=== PATIENT | female | born 1965 | race Caucasian/White ===

== ENCOUNTER 2024-03-29 20:20 | Emergency (ER) | payer OTHER, SELFPAY ==
[2024-03-29 20:27] VITALS: BP 160/90
[2024-03-29 22:44] LABS: % Basophils 0.6 % (0-2); % Eosinophils 1.5 % (0-6); % Immature Granulocytes 0.2 % (0-0.5); % Lymphocytes 38.3 % (20.5-51.1); % Monocytes 7.4 % (1.7-9.3); Absolute Basophils 0.1 10^3/uL (0-0.2); Absolute Eosinophils 0.1 10^3/uL (0-0.7); Absolute Lymphocytes 3.3 10^3/uL (1.2-3.4); Absolute Monocytes 0.6 10^3/uL (0.1-0.6); Absolute Neutrophils 4.5 10^3/uL (1.4-6.5); Hematocrit 36.8 % (37.0-47.0); Hemoglobin 11.7 g/dL (12.0-16.0); Mean Corp Hgb Conc. 31.8 g/dL (33.0-37.0); Mean Corpuscular Hgb 26.7 pg (27.0-31.0); Mean Corpuscular Volume 83.8 fL (81.0-99.0); Mean Platelet Volume 10.5 fL (7.4-10.4); Nucleated Red Blood Cells % 0 %; Platelet Count 247 10^3/uL (130-400); Red Blood Cell Count 4.39 10^6/uL (4.20-5.40); Red Cell Dist. Width 14.7 % (11.5-14.5); White Blood Cell Count 8.6 10^3/uL (4.8-10.8)
[2024-03-29 22:59] LABS: ALT (SGPT) 19 U/L (0-35); AST (SGOT) 22 U/L (14-36); Albumin 4.2 g/dl (3.5-5.0); Alkaline Phosphatase 52 U/L (38-126); Blood Urea Nitrogen 15 mg/dl (7-17); Calcium 9.5 mg/dl (8.4-10.2); Carbon Dioxide 28 mmol/L (22-30); Chloride 107 mmol/L (98-107); Glucose 107 mg/dl (70-99); Potassium 4.2 mmol/L (3.5-5.1); Sodium 145 mmol/L (135-145); Total Bilirubin 0.1 mg/dl (0.2-1.3); eGFR > 60.00
[2024-03-29] MEDS: OMNIPAQUE 50 ML PO (23:45)
[2024-03-29] MEDS: NSS 1000 IV (23:53)
[2024-03-29 23:54] VITALS: BMI 33.8
--- NOTE | 2024-03-29 23:55 | ED.GENMED ---
History of Present Illness
General
Chief Complaint: Abdominal Symptoms
Source: patient
Exam Limitations: none
Time Seen by Provider: 03/29/24 22:43
History of Present Illness
History of Present Illness:
This is a 58 year old female that comes in with c/o abd pain. States that this started in the summer that she just didn't feel good. States that she wasn't sure if it was her heart of her stomach. States that she went to [facility] and the did a
CT scan. States that she was told that there was LLQ inflammation but she did not take antibiotics at that time. States that she she did have an US and she did take antibiotics later for this pain. States that she has trouble going to the bathroom
and that they are unable to do a colonoscopy as they can't get the tube passed. States that she has taken Miralax and Fiber pills and she is going to the bathroom but very little. States that she is distended and and bloated and she feels like
something is pulling. States that she has slight headache and is nauseated. Denies any fever, chills, chest pain, SOB, vomiting, diarrhea, dizziness, urinary burning.
Past History
Past History
ED Past Medical History: GERD, Hypothyroidism and Other (Bowel obstruction, Diverticulitis, Endometriosis, Adhesions)
ED Past Surgical History: Bowel resection, Cholecystectomy and Gynecological (Hysterectomy, Lap x 7)
Social History
Tobacco: Non-smoker
Alcohol: Occasional
Personal:
Living: with family
Review of Systems
Review of Systems
All Other Systems: ROS reviewed and negative except as documented in HPI and ROS
Constitutional: Reports no symptoms; Denies fever or chills
EENT: Reports no symptoms
Respiratory: Reports no symptoms; Denies cough or trouble breathing
Cardiac: Reports no symptoms; Denies chest pain
ABD/GI: Reports abdominal pain, nausea and other (difficulty having a BM); Denies vomiting or diarrhea
: Reports no symptoms; Denies dysuria, frequency or urgency
Musculoskeletal: Reports no symptoms
Skin: Reports no symptoms
Neurological: Reports headache; Denies dizzy
Psychiatric: Reports no symptoms
Phy Exam
General Physical Exam
General Presentation: well appearing and no apparent distress
General age: appears stated age
General Skin: warm and dry
General Habitus: normal
General Mental: alert
General Hydration: appears well hydrated
ENT Exam
ENT Exam: TM's normal, pharynx normal and neck supple
Eye Exam
Eye Exam: EOMI
Cardiovascular Exam
Cardiovascular Exam: regular rate/rhythm, no edema, no murmur and normal peripheral pulses
Pulmonary Exam
Pulmonary Exam: lungs clear, no respiratory distress, no rales, chest non tender, no crackles, no rhonchi, no wheezing and no cough
Gastrointestinal Exam
Gastrointestinal Exam: normal bowel sounds, non tender, soft, no organomegaly, no pulsatile mass and non distended
Musculoskeletal Exam
Musculoskeletal Exam: full ROM and no edema
Skin Exam
Skin Exam: normal color, warm/dry, no rash and no petechia
Psychiatric Exam
Psychiatric Exam: normal mood/affect
Course
Orders/Labs/Results
Orders:
Orders
03/29/24 22:35
CMP [Comprehensive Metabolic Panel] Urgent
Complete Blood Count/With Diff Urgent
03/29/24 22:58
0.9% Sodium Chloride 1000 ml [Nss] 1,000 ml IV BOLUS
Iohexol [Omnipaque] See Protocol PO NOW STA
03/30/24 01:00
CT Abd/pel W Iv And Oral Contr Urgent
Reason For Exam: Left lower abd pain , bloating
Abnormal Lab Results
03/29/24
22:35
Hgb 11.7 L g/dL
(12.0-16.0)
Hct 36.8 L %
(37.0-47.0)
MCH 26.7 L pg
(27.0-31.0)
MCHC 31.8 L g/dL
(33.0-37.0)
RDW 14.7 H %
(11.5-14.5)
MPV 10.5 H fL
(7.4-10.4)
Glucose 107 H mg/dl
(70-99)
Total Bilirubin 0.1 L mg/dl
(0.2-1.3)
03/29/24 22:35
03/29/24 22:35
H/H slightly low. Glucose nonfasting. Total helen slightly low.
Vital Signs
Initial and Last Documented VS:
Initial Vital Signs
Temp Pulse Resp BP Pulse Ox
98.7 F 78 22 160/90 99
03/29/24 20:27 03/29/24 20:27 03/29/24 20:27 03/29/24 20:27 03/29/24 20:27
Last Documented Vital Signs
Temp Pulse Resp BP Pulse Ox
98.7 F 68 20 130/62 96
03/29/24 20:27 03/30/24 00:48 03/30/24 00:48 03/30/24 00:01 03/30/24 00:48
MDM/Problems Addressed
Differential Diagnosis Includes:
Adhesion. Partial bowel obstruction
MDM/Problems Addressed:
This is a 58 year old female that comes in with c/o abd bloating and distention. States that she has trouble going to the bathroom and that this started in the summer.
Will check labs and get CT of the abd/pelvis.
back into see patient. Explained that her CT is negative for any obstruction but there is either diverticulitis or colitis. Explained that there is a large amount of stool burden. Will place patient on Augmentin and she finished Levaquind and
Flagyl a few weeks ago and will also give a bottle of magesium Citrate to help with the Constipation. Encouraged patient to try Prunce juice mixed with apple juice in equal amounts and head and drink daily. Patient to follow up with the GI
specialist. Return with increased or changing pain, vomiting, fever. or any other concerns
Chronic conditions affecting care: Previous abdomnial surgery
Acute Exacerbation and/or Progression of Chronic Illness: Previous abdomnial surgery
*Radiology
Radiology exam reviewed: radiology read reviewed (CT night hawk-Large left colonis stool burden, correlate for constipation. TGhere is subtle haziness of the fat near the mid sigmoid colon in the central lower abdomen, could reflect very mild
diverticulitis or stercoral colitis. No bowel obstruction or free air. Appendectomy. Small hiatal hernia. ) and other (CT cont- Cholecystectomy. Left renal cyst. Pancreas is unremarkable. )
*Pulse Oximetry
Patient hypoxic: no
*EKG
Interpreted by ED Provider?: NA
Rate: EKG- N/A
*Internet Developer Interpretation
Rate: Internet Developer- N/A
*Critical Care Note
Total Time (30-74mins, 75-104mins- exclusive of procedures): Not Applicable
ED Attending Note
-
Portions of this chart may have been created with voice recognition software.� Occasional wrong word or��sound alike� substitutions may have occurred due to the inherent limitations of voice recognition software.
Discharge Plan
Departure
Patient Disposition: Home (Routine Discharge)
Date of Disposition: 03/30/24
Time of Disposition: 03:25
Patient with high blood pressure during this ER visit?: Yes
Condition: Good
Covid-19: Not Applicable
Discharge Problem:
Constipation, Diverticulitis Vs Colitis
Instructions: Constipation, Adult (DC), Diverticulitis (DC), Colitis (DC), BLOOD PRESSURE
Prescriptions:
New
amoxicillin-pot clavulanate 875-125 mg tablet
1 tab PO BID Qty: 19 0RF
No Action
omeprazole 40 mg Capsule,Delayed Release(Dr/Ec)
40 mg PO DAILY
levothyroxine 50 mcg Tablet
50 mcg PO DAILY
magnesium 200 mg Tablet
400 mg PO DAILY
Pycnogenol 50 mg Capsule
100 mg PO DAILY
vitamin O46-ikywz acid 0.5-1 mg Tablet
1 tab PO DAILY
cholecalciferol (vitamin D3) [Vitamin D3] 50 mcg (2,000 unit) Capsule
50 mcg PO DAILY
hydroxychloroquine 100 mg Tablet
150 mg PO BID
Referrals:
MAURIZIO NOBLE [Other]
Tal Ibrahmi MD [Active] - Follow up in 2-3 days
Activity Restrictions/Additional Instructions:
As discussed, your CT shows that there is no obstruction but there is either Diverticulitis vs Colitis. You also have a large amount of constipation. You have been given a bottle of Magnesium Citrate to drink. Please drink the Entire bottle at once.
Increase your water intake to 8-8oz glasses daily. You have also had a prescription for an antibiotic sent to your Pharmacy. Please take as directed for the next 10 days. Follow up with the GI specialist for further evaluation. IF YOU HAVE INCREASED
OR CHANGING ABD PAIN, FEVER, VOMITING, OR YOU HAVE ANY OTHER CONCERNS PLEASE RETURN TO THE EMERGENCY ROOM.
Interventions
Interventions:
*Risk Screen - Suicide Last Done: 03/29/24 20:27
*Neglect/Abuse Screening Last Done: 03/29/24 20:27
ED- Fall Risk Assessment Last Done: 03/29/24 23:45
SY-Pxbrgu-Qqngtlvrjw Assessment Last Done: 03/29/24 23:45
Discharge Date and Time
Print Language: GUAMANIAN
[2024-03-30 00:01] VITALS: BP 130/62
[2024-03-30 01:00] VITALS: BP 130/63
[2024-03-30 02:41] VITALS: BP 135/65
[2024-03-30] MEDS: CITROMA 300 ML PO (03:41)
[2024-03-30] MEDS: AUGMENTIN 875 MG/125 MG 1 TABLET PO (03:41)
[2024-03-30 03:47] VITALS: BP 136/70
== END 2024-03-30 03:50 | disposition home or self-care (01) ==
LOC: EMR 20:20
PROVIDERS: Student in an Organized Health Care Education/Training Program; EMERGENCY PHYSICIAN Student in an Organized Health Care Education/Training Program
DX: K59.00 Constipation, unspecified (principal); K21.9 Gastro-esophageal reflux disease without esophagitis; E03.9 Hypothyroidism, unspecified; Z90.49 Acquired absence of other specified parts of digestive tract; Z90.710 Acquired absence of both cervix and uterus
CPT/HCPCS: 99284; 96360; 74177; 80053; 85025; Q9967

== ENCOUNTER 2024-06-10 09:31 | Emergency (ER) | payer OTHER, SELFPAY ==
[2024-06-10 09:49] VITALS: BP 162/83
[2024-06-10 10:15] LABS: % Basophils 0.4 % (0-2); % Eosinophils 2.1 % (0-6); % Immature Granulocytes 0.5 % (0-0.5); % Lymphocytes 44.8 % (20.5-51.1); % Monocytes 7.8 % (1.7-9.3); % Neutrophils 44.4 % (42.2-75.2); Absolute Eosinophils 0.2 10^3/uL (0-0.7); Absolute Immature Granulocytes 0.1 10^3/uL (0-0.05); Absolute Lymphocytes 4.7 10^3/uL (1.2-3.4); Absolute Monocytes 0.8 10^3/uL (0.1-0.6); Absolute Neutrophils 4.7 10^3/uL (1.4-6.5); Hematocrit 40.1 % (37.0-47.0); Hemoglobin 12.2 g/dL (12.0-16.0); Mean Corp Hgb Conc. 30.4 g/dL (33.0-37.0); Mean Corpuscular Hgb 25.1 pg (27.0-31.0); Mean Corpuscular Volume 82.5 fL (81.0-99.0); Mean Platelet Volume 10.2 fL (7.4-10.4); Nucleated Red Blood Cells % 0 %; Platelet Count 300 10^3/uL (130-400); Red Blood Cell Count 4.86 10^6/uL (4.20-5.40); Red Cell Dist. Width 14.6 % (11.5-14.5); White Blood Cell Count 10.5 10^3/uL (4.8-10.8)
[2024-06-10 10:34] LABS: ALT (SGPT) 29 U/L (0-35); AST (SGOT) 18 U/L (14-36); Albumin 4.4 g/dl (3.5-5.0); Alkaline Phosphatase 67 U/L (38-126); Blood Urea Nitrogen 14 mg/dl (7-17); Calcium 9.7 mg/dl (8.4-10.2); Carbon Dioxide 29 mmol/L (22-30); Chloride 102 mmol/L (98-107); Glucose 88 mg/dl (70-99); Lipase 129 U/L (23-300); Potassium 3.9 mmol/L (3.5-5.1); Sodium 140 mmol/L (135-145); Total Bilirubin 0.2 mg/dl (0.2-1.3); eGFR > 60.00
--- NOTE | 2024-06-10 11:13 | ED.GENMED ---
History of Present Illness
General
Chief Complaint: Abdominal Symptoms
Source: patient
Exam Limitations: none
Time Seen by Provider: 06/10/24 11:12
Nursing documentation reviewed up to this point in time: agreed with
History of Present Illness
History of Present Illness:
58-year-old female with history of bowel obstruction, diverticulitis, GERD, endometriosis, hypothyroid, partial hysterectomy, cholecystectomy, multiple laparoscopies presents for pain, points to epigastric area. Can only tolerate soups, crackers,
can't eat regular food due to bloating and abdominal pain. Denies any weight loss. Also her shoulders and torso have developed burning pains various areas since yesterday.
Patient states 1 year ago in May she had a hard time breathing and similar epigastric pains. She saw a advertiser and was cleared by cardiology at [place]. He referred her to GI Dr. Salcedo at [facility]. She states he told me 'my stomach was
not working properly and I was told to take gingerroot pills.' In August 2022 she felt bloated and had generalized abdominal pain
On 12/08 she went to [facility] ER and had a CAT scan without contrast that showed left lower quadrant inflammation and was told to follow-up with GI
On she saw GI Dr. Locke at [facility] in [place] who found 'nothing concerning.' She states her pain worsened and they gave her Levaquin and Flagyl which she finished with no improvement
She then was seen here in March 2024 for similar symptoms had a CAT scan with IV and p.o. contrast which showed a large stool burden but nothing else. She states it feels like when she had an obstruction and had to have a bowel resection.
On 03/30 she had the CAT scan that showed extensive left colon stool and possible diverticulitis versus colitis and she finished a regimen of Augmentin.
She saw GI Dr. Garcia on 04/2024 who discussed with her the fact that with her multiple abdominal surgeries she probably has a lot of scar tissue and told her to take MiraLAX every night which she is not doing rather she is taking a stool softener
with a laxative and it daily and states she had her last formed bowel movement a month ago and ever since then she just has daily 'liquidy stools with flakes in it.'
She does have a follow-up with Dr. Pearce next week. She states he did tell her that they may have to discuss the scar tissue in her abdomen that may be causing the symptoms.
Past History
Past History
ED Past Medical History: GERD, Hypothyroidism and Other (Bowel obstruction, Diverticulitis, Endometriosis, Adhesions)
ED Past Surgical History: Bowel resection, Cholecystectomy and Gynecological (Hysterectomy, Lap x 7)
Social History
Tobacco: Non-smoker
Alcohol: Occasional
Personal:
Living: with family
Review of Systems
Review of Systems
Allergies reviewed?: Yes
All Other Systems: ROS reviewed and negative except as documented in HPI and ROS
Constitutional: Denies fever
Respiratory: Denies trouble breathing
Cardiac: Denies chest pain
ABD/GI: Reports abdominal pain and diarrhea (watery stools with 'flakes' in it. No solid BM for over a month.); Denies nausea, vomiting, bloody stools or black stools
Phy Exam
Physical Exam
Physical Exam:
GENERAL: No acute distress. A&Ox3.
CONSTITUTIONAL: Afebrile.
EYES: clear, conjunctivae normal
ENMT: moist mucus membranes, Pharynx nl
RESPIRATORY: Regular respirations, nonlabored, lungs clear.
CARDIOVASCULAR: Regular rate and rhythm, no murmurs, no rubs.
GI: Soft, generally tender to palpation, normal BS
MUSCULOSKELETAL: Moves with ease. Well perfused.
SKIN: Warm, dry, pink
PSYCH: Anxious mood and affect. Well kept, interactive and appropriate
NEUROLOGIC: Awake, alert and oriented. No focal neurological deficits
Course
Orders/Labs/Results
Orders:
Orders
06/10/24 09:52
Electrocardiogram (*1) Urgent
Reason for Study: Abdominal Pain
EKG- Treatment ONCE
06/10/24 09:56
Complete Blood Count/With Diff Urgent
Comprehensive Metabolic Panel Urgent
Lipase Urgent
06/10/24 11:40
CT Abd/pel W Iv And Oral Contr Urgent
Comment:
Reason For Exam: abd pain
Iohexol [Omnipaque] See Protocol PO NOW STA
Abnormal Lab Results
06/10/24
09:56
MCH 25.1 L pg
(27.0-31.0)
MCHC 30.4 L g/dL
(33.0-37.0)
RDW 14.6 H %
(11.5-14.5)
Abs Immat Gran (auto) 0.1 H 10^3/uL
(0-0.05)
Absolute Lymphs (auto) 4.7 H 10^3/uL
(1.2-3.4)
Absolute Monos (auto) 0.8 H 10^3/uL
(0.1-0.6)
06/10/24 09:56
06/10/24 09:56
Vital Signs
Initial and Last Documented VS:
Initial Vital Signs
Temp Pulse Resp BP Pulse Ox
97.9 F 73 18 162/83 100
06/10/24 09:49 06/10/24 09:49 06/10/24 09:49 06/10/24 09:49 06/10/24 09:49
Last Documented Vital Signs
Temp Pulse Resp BP Pulse Ox
97.9 F 72 18 133/68 98
06/10/24 09:49 06/10/24 16:08 06/10/24 16:08 06/10/24 16:08 06/10/24 16:08
MDM/Problems Addressed
Differential Diagnosis Includes:
diverticulitis, colitis, constipation, adhesions, bowel obstruction
MDM/Problems Addressed:
58-year-old female with history of bowel obstruction, diverticulitis, GERD, endometriosis, hypothyroid, partial hysterectomy, cholecystectomy, multiple laparoscopies presents for pain, points to epigastric area. Feels bloated. . Can only tolerate
soups, crackers, can't eat regular food due to bloating and abdominal pain. Denies any weight loss. Also her shoulders and torso have developed burning pains various areas since yesterday.
Patient states 1 year ago in May she had a hard time breathing and similar epigastric pains. She saw a advertiser and was cleared by cardiology at [facility]. He referred her to GI Dr. Salcedo at [facility]. She states he told me 'my stomach was
not working properly and I was told to take gingerroot pills.' In August 2022 she felt bloated and had generalized abdominal pain
On 12/08/22 she went to [facility] ER and had a CAT scan without contrast that showed left lower quadrant inflammation and was told to follow-up with GI
On 01/18/[address] Araya at [facility] in [place] who found 'nothing concerning.' She states her pain worsened and they gave her Levaquin and Flagyl which she finished with no improvement
She states it feels like when she had an obstruction and had to have a bowel resection.
Here on 03/30 she had the CAT scan that showed extensive left colon stool and possible diverticulitis versus colitis and she finished a regimen of Augmentin.
She saw GI Dr. Pearce on [place] 04/2024 who discussed with her the fact that with her multiple abdominal surgeries she probably has a lot of scar tissue and told her to take MiraLAX every night which she is not doing rather she is taking a stool
softener with a laxative and it daily and states she had her last formed bowel movement a month ago and ever since then she just has daily liquidy stools with flakes in it.
She does have a follow-up with Dr. Garcia next week. She states he did tell her that they may have to discuss the scar tissue in her abdomen that may be causing the symptoms.
She was seen 06/02 for a sinus infection and just finished 10 days of Augmentin and 5 days of Prednisone yesterday.
CBC unremarkable
CMP unremarkable
Lipase normal
EKG sinus rhythm with occasional PVCs
4:[address] abdomen pelvis with p.o. and IV contrast, radiology report read: IMPRESSION: Mild circumferential wall thickening of the sigmoid colon and rectum probably due to colitis. Limited opacification of the rectum. Underlying mass not completely
excluded.
Diverticulosis. No evidence of acute diverticulitis.
Simple left renal cyst.
Prior cholecystectomy.
Discussed results with patient and male person with her, explained that since the rectum was not opacified with a contrast it is typical of radiology report that underlying mass not completely excluded, reassured that there is no indication that she
has a mass this is simply radiology read due to lack of complete visualization of the area
Pt just finished Augmentin, no indication for antibiotics at this time
Pt may be experiencing pain from adhesions. Referred to general surgery. Pt expressing frustration as 'no one can find out what's going on.'
Sent text message sent to Dr. Wilson to alert staff to get pt in sooner rather than later.
She will call office Thursday a.m.
Pt ambulated out with normal gait.
*EKG
EKG Intrepretation Date: 06/10/24
Interpretation: abnormal
Heart Rate: 71
Rate: normal
Rhythm: sinus and PVC's
[place]: normal axis
Interval: normal interval
QRS Pattern: normal QRS
Ischemia: no ischemia
*Critical Care Note
Total Time (30-74mins, 75-104mins- exclusive of procedures): Not Applicable
ED Attending Note
-
Portions of this chart may have been created with voice recognition software.� Occasional wrong word or��sound alike� substitutions may have occurred due to the inherent limitations of voice recognition software.
Discharge Plan
Departure
Patient Disposition: Home (Routine Discharge)
Date of Disposition: 06/10/24
Time of Disposition: 15:35
Patient with high blood pressure during this ER visit?: No
Condition: Fair
Discharge Problem:
Abdominal pain
Instructions: Abdominal Pain
Prescriptions:
No Action
omeprazole 40 mg Capsule,Delayed Release(Dr/Ec)
40 mg PO DAILY
levothyroxine 50 mcg Tablet
50 mcg PO DAILY
magnesium 200 mg Tablet
400 mg PO DAILY
Pycnogenol 50 mg Capsule
100 mg PO DAILY
vitamin R00-bdxux acid 0.5-1 mg Tablet
1 tab PO DAILY
cholecalciferol (vitamin D3) [Vitamin D3] 50 mcg (2,000 unit) Capsule
50 mcg PO DAILY
hydroxychloroquine 100 mg Tablet
150 mg PO BID
amoxicillin-pot clavulanate 875-125 mg tablet
1 tab PO BID Qty: 19 0RF
Referrals:
ROSA NOBLE [Other]
Dandy Garcia MD [Active] - Keep scheduled appt
Raphael Wilson MD [Active] - Next open appointment
Activity Restrictions/Additional Instructions:
As we discussed, nothing worrisome in your workup here today.
Follow up with your GI doctor as scheduled
If your pain is caused by scar tissue/adhesions, you MAY need an exploratory laparoscopy.
Call and make appointment with the surgeon Dr. Wilson to discuss
Interventions
Interventions:
*Risk Screen - Suicide Last Done: 06/10/24 16:17
*General Assessment Last Done: 06/10/24 16:16
*Neglect/Abuse Screening Last Done: 06/10/24 16:16
*Nursing Disposition Last Done: 06/10/24 16:17
GF-Dmyxno-Papduruzzm Assessment Last Done: 06/10/24 13:48
Discharge Date and Time
Discharge Date/Time: 06/10/24 17:01
Print Language: SCOTTISH
[2024-06-10] MEDS: OMNIPAQUE 50 ML PO (11:48)
[2024-06-10 16:08] VITALS: BP 133/68
== END 2024-06-10 17:01 | disposition home or self-care (01) ==
LOC: EMR 09:31
PROVIDERS: Emergency Medicine; EMERGENCY PHYSICIAN Emergency Medicine
DX: R10.13 Epigastric pain (principal); K21.9 Gastro-esophageal reflux disease without esophagitis; E03.9 Hypothyroidism, unspecified; Z90.49 Acquired absence of other specified parts of digestive tract; Z90.710 Acquired absence of both cervix and uterus; Z87.19 Personal history of other diseases of the digestive system
CPT/HCPCS: 99284; 74177; 80053; 83690; 85025; 93005; Q9967

== ENCOUNTER 2024-06-27 06:32 | Day surgery (SDC) | payer OTHER, SELFPAY | END 2024-06-27 09:08 | disposition home or self-care (01) | LOC: GI 06:32 | PROVIDERS: ATTENDING PHYSICIAN Internal Medicine Gastroenterology | DX: R10.32 Left lower quadrant pain (principal); R93.3 Abnormal findings on diagnostic imaging of other parts of digestive tract; K57.30 Diverticulosis of large intestine without perforation or abscess without bleeding; K64.8 Other hemorrhoids; K56.699 Other intestinal obstruction unspecified as to partial versus complete obstruction | CPT/HCPCS: 45378 ==

== ENCOUNTER 2024-07-15 06:03 | Inpatient (IN) | payer OTHER, SELFPAY ==
[2024-07-07 10:50] LABS: Hematocrit 37.6 % (37.0-47.0); Hemoglobin 11.5 g/dL (12.0-16.0); Mean Corp Hgb Conc. 30.6 g/dL (33.0-37.0); Mean Corpuscular Hgb 25.2 pg (27.0-31.0); Mean Corpuscular Volume 82.5 fL (81.0-99.0); Mean Platelet Volume 11.2 fL (7.4-10.4); Platelet Count 272 10^3/uL (130-400); Red Blood Cell Count 4.56 10^6/uL (4.20-5.40); Red Cell Dist. Width 14.4 % (11.5-14.5); White Blood Cell Count 6.4 10^3/uL (4.8-10.8)
[2024-07-07 11:00] LABS: INR 0.92; PT 12.8 Sec (11.4-14.6)
[2024-07-07 11:01] LABS: APTT 31.6 Sec (23.4-35.0)
[2024-07-07 11:28] LABS: ALT (SGPT) 23 U/L (0-35); AST (SGOT) 22 U/L (14-36); Albumin 4.5 g/dl (3.5-5.0); Alkaline Phosphatase 62 U/L (38-126); Blood Urea Nitrogen 12 mg/dl (7-17); Calcium 9.2 mg/dl (8.4-10.2); Carbon Dioxide 27 mmol/L (22-30); Chloride 105 mmol/L (98-107); Glucose 87 mg/dl (70-99); Potassium 4.2 mmol/L (3.5-5.1); Sodium 143 mmol/L (135-145); Total Bilirubin 0.5 mg/dl (0.2-1.3); eGFR > 60.00
[2024-07-07 11:44] LABS: Glycohemoglobin (HgbA1c) 5.8 % (4.0-5.6)
[2024-07-07 13:39] VITALS: BMI 33.6
[2024-07-15] VITALS (14 sets, daily range): BP systolic 130–159; BP diastolic 71–90; BMI 33.6
[2024-07-15] MEDS: NORMOSOL-R/PLASMALYTE-A 1000 IV ×2 (06:45→14:37)
[2024-07-15] MEDS: ENTEREG 12 MG PO (06:45)
[2024-07-15] MEDS: TYLENOL 1000 MG PO (06:45)
[2024-07-15] MEDS: HEPARIN 5000 UNITS SC (06:45)
--- NOTE | 2024-07-15 12:55 | W.IMMPOSTOP ---
Surgical Immed Post Op Note
-
Primary Surgeon: Silvestre Gray MD
Assistants: DEVEN Dupont and FLORENCIA Silva
Pre-op Diagnosis: Sigmoid stricture
Post-op Diagnosis: Sigmoid stricture due to chronic endometriosis/adhesions
Procedure Performed: Cystoscopy with bilateral ureteral stents/ICG (Dr. Townsend)
Robotic low anterior resection with intracorporeal anastomosis
Anesthesia Type: GET
Specimen / Cultures: Sigmoid colon (suture is proximal)
Estimated Blood Loss: 75cc
Complications: None
Operative Findings: Extensive adhesions requiring adhesiolysis > 2 hours
Chronic endometriosis in the pelvis with the rectosigmoid colon densely adherent to the posterior uterus
28mm EEA
Normal leak test
Patient's updated.
--- NOTE | 2024-07-15 14:39 | PTCARENOTE ---
Pt arrived to [facility] from PACU s/p robotic sigmoid colon resection. Pt drowsy but AAOx3. 6 incisional sites C/D/I, Wesley in place draining bloody urine, ureteral stent still in place. Pt satting 97% on 2L NC. Call augustin within reach. Bed locked and
in lowest position.
[2024-07-15] MEDS: TORADOL 15 MG IV ×2 (15:10→19:41)
[2024-07-15] MEDS: TYLENOL 650 MG PO ×3 (16:44→23:12)
[2024-07-15] MEDS: DILAUDID 0.5 MG IV (16:59)
[2024-07-15] MEDS: DIFLUCAN 150 MG PO (18:07)
[2024-07-15] MEDS: PLAQUENIL 200 MG PO (19:41)
[2024-07-16] MEDS: NORMOSOL-R/PLASMALYTE-A 1000 IV ×2 (01:46→13:06)
[2024-07-16] MEDS: TORADOL 15 MG IV ×4 (01:46→20:13)
[2024-07-16 03:00] VITALS: BP 130/65
[2024-07-16] MEDS: TYLENOL 650 MG PO ×5 (03:08→20:14)
[2024-07-16 06:00] VITALS: BMI 33.6
[2024-07-16] MEDS: SYNTHROID 50 MCG PO (06:41)
[2024-07-16 07:50] VITALS: BP 109/68
[2024-07-16] MEDS: PROTONIX 40 MG PO (08:24)
[2024-07-16] MEDS: ENTEREG 12 MG PO ×2 (08:25→20:14)
[2024-07-16] MEDS: PLAQUENIL 200 MG PO ×2 (08:25→20:14)
--- NOTE | 2024-07-16 08:34 | W.PN.GS2 ---
Addendum entered and electronically signed by Jorge A Hamilton MD 07/16/24 09:04:
Patient seen and examined. Agree with assessment plan as documented below.
No major complaints. Pain well-controlled. Minimal intake of clears. No nausea or vomiting. No flatus no BM. Afebrile. Mari in place with stent. Minimal ambulation.
Gen: NAD
Abd: soft, mild tenderness, obese, mild distension, non-peritoneal, incisions c/d/i - no erythema, ecchymosis or drainage
: Mari with light blood tinged urine, stent removed
58 yo female with a h/o sigmoid stricture secondary to chronic endometriosis/adhseions
POD #1 Robotic low anterior resection with cysto for stent placement
AFVSS
Labs notable for normal WBC, drift in hemoglobin from 11.5-9.5, BMP pending
Stent removed.
Plan for monitoring dietary tolerance on clear liquids today, possible advancement to full's later this afternoon.
Acute blood loss and dilutional anemia with routine hemoglobin. No signs of active bleeding with stable heart rate and BP. Plan for recheck tomorrow. Will hold on Lovenox for today.
High risk for yeast infection given her history, surgery, prior antibiotics, and presence of urinary catheter. Plan to continue Diflucan.
--CLD, possible fulls later pending tolerance
--Pain control: Tylenol, Toradol, Oxycodone
--Decrease IVF to 50ml/hr
--Continue Mari today, remove tomorrow given stents and hematuria
--DVT: SCDs for VTE ppx, will start Lovenox tomorrow if h/h stable
--Abx: Diflucan 100mg daily, given history and symptoms
--Home meds
--Follow-up labs
Original Note:
Today's Communication / Plan
-
Follow labs
CLD
Stent removed
Assessment / Plan
-
58 yo female with a h/o sigmoid stricture secondary to chronic endometriosis/adhseions
POD #1 Robotic low anterior resection with cysto for stent placement
Both stents now out
AFVSS
Labs for today still pending
--CLD
--Continue mari today, remove tomorrow
--Follow labs
--SCDs for VTE ppx, will start lovenox if h/h stable
--Diflucan 100mg daily
--Multimodal analgesics scheduled and prn
--Decrease IVF to 50ml/hr
Subjective Data
-
Date of Service: July 16, 2024
Patient seen and examined at bedside with Dr. Hamilton. Denies n/v. Some soreness. Not passing flatus yet. Feels like she may be developing a yeast infection.
Objective Data
-
Intake and Output
07/15/24 07/16/24 07/17/24
06:59 06:59 06:59
Intake Total 1730 / 1730
Output Total 1874 / 1874
Balance -145 / -145
Intake:
Oral fluids 480 / 480
IV fluids (Total) 1250 / 1250
normosol 50 / 50
Output:
Urine, Mari 1874
Vital Signs
Temp Pulse Resp BP Pulse Ox
100 F 88 16 109/68 97
07/16/24 07:50 07/16/24 07:50 07/16/24 07:50 07/16/24 07:50 07/16/24 07:50
Calcium 9.2 mg/dl (8.4-10.2) 07/07/24 09:04
Total Bilirubin 0.5 mg/dl (0.2-1.3) 07/07/24 09:04
AST 22 U/L (14-36) 07/07/24 09:04
ALT 23 U/L (0-35) 07/07/24 09:04
Alkaline Phosphatase 62 U/L (38-126) 07/07/24 09:04
Total Protein 7.0 g/dl (6.3-8.2) 07/07/24 09:04
Albumin 4.5 g/dl (3.5-5.0) 07/07/24 09:04
Physical Exam
-
NAD
ABD soft, minimal distention, mild incisional tenderness
Incisions clear, dry, intact
Punch colored urine in mari, stent removed
Patient has a mari catheter: Yes
[2024-07-16] MEDS: ROXICODONE 5 MG PO ×2 (08:36→16:52)
[2024-07-16 08:52] LABS: % Basophils 0.3 % (0-2); % Immature Granulocytes 0.4 % (0-0.5); % Lymphocytes 21.2 % (20.5-51.1); % Monocytes 11.2 % (1.7-9.3); % Neutrophils 66.9 % (42.2-75.2); Absolute Lymphocytes 2.2 10^3/uL (1.2-3.4); Absolute Monocytes 1.1 10^3/uL (0.1-0.6); Absolute Neutrophils 6.8 10^3/uL (1.4-6.5); Hematocrit 30.5 % (37.0-47.0); Hemoglobin 9.5 g/dL (12.0-16.0); Mean Corp Hgb Conc. 31.1 g/dL (33.0-37.0); Mean Corpuscular Hgb 25.3 pg (27.0-31.0); Mean Corpuscular Volume 81.3 fL (81.0-99.0); Mean Platelet Volume 11.2 fL (7.4-10.4); Nucleated Red Blood Cells % 0 %; Platelet Count 246 10^3/uL (130-400); Red Blood Cell Count 3.75 10^6/uL (4.20-5.40); Red Cell Dist. Width 15.1 % (11.5-14.5); White Blood Cell Count 10.2 10^3/uL (4.8-10.8)
[2024-07-16 09:10] LABS: Blood Urea Nitrogen 9 mg/dl (7-17); Carbon Dioxide 25 mmol/L (22-30); Chloride 107 mmol/L (98-107); Estimated Creatinine Clearance 75 ml/min; Glucose 96 mg/dl (70-99); Potassium 3.8 mmol/L (3.5-5.1); Sodium 139 mmol/L (135-145); eGFR > 60.00
[2024-07-16] MEDS: DIFLUCAN 100 MG PO (09:13)
[2024-07-16 11:33] VITALS: BP 98/68
--- NOTE | 2024-07-16 14:04 | CM ---
Initial assessment completed with pt at bedside.
Pt is a 58yr female admitted with sigmoid colon resection.
At baseline, pt lives with her and their son in a 2 story home with 1 step to enter.
Pt is indep and driving at baseline. No current/hx of DME/VN/SNF
PCP; Cassie Lucas
Pharm; [facility] [address]
PLAN; home with no needs anticipated
[2024-07-16 15:30] VITALS: BP 129/61
[2024-07-16 23:49] VITALS: BP 102/51
[2024-07-17] MEDS: TYLENOL PO (01:35)
[2024-07-17] MEDS: TORADOL 15 MG IV (02:13)
[2024-07-17] MEDS: TYLENOL 650 MG PO ×3 (04:21→11:57)
[2024-07-17] MEDS: SYNTHROID 50 MCG PO (04:21)
[2024-07-17 06:00] VITALS: BMI 34.0
[2024-07-17 06:04] LABS: Hematocrit 28.2 % (37.0-47.0); Hemoglobin 8.7 g/dL (12.0-16.0); Mean Corp Hgb Conc. 30.9 g/dL (33.0-37.0); Mean Corpuscular Hgb 25.6 pg (27.0-31.0); Mean Corpuscular Volume 82.9 fL (81.0-99.0); Platelet Count 212 10^3/uL (130-400); Red Cell Dist. Width 15.2 % (11.5-14.5); White Blood Cell Count 8.7 10^3/uL (4.8-10.8)
[2024-07-17 06:23] LABS: Blood Urea Nitrogen 10 mg/dl (7-17); Calcium 8.2 mg/dl (8.4-10.2); Carbon Dioxide 27 mmol/L (22-30); Chloride 109 mmol/L (98-107); Estimated Creatinine Clearance 66 ml/min; Glucose 75 mg/dl (70-99); Potassium 4.2 mmol/L (3.5-5.1); Sodium 140 mmol/L (135-145); eGFR > 60.00
[2024-07-17 07:18] VITALS: BP 114/62
[2024-07-17] MEDS: NORMOSOL-R/PLASMALYTE-A IV (07:56)
[2024-07-17] MEDS: PROTONIX 40 MG PO (07:56)
[2024-07-17] MEDS: DIFLUCAN 100 MG PO (07:56)
[2024-07-17] MEDS: ENTEREG 12 MG PO (07:56)
[2024-07-17] MEDS: PLAQUENIL 200 MG PO (07:56)
--- NOTE | 2024-07-17 09:05 | W.PN.GS2 ---
Today's Communication / Plan
-
--LRD
--Pain control: Tylenol, Oxycodone, holding Toradol given Hb drift
--DC Mari
--Repeat h&H this afternoon
--DVT: SCDs for VTE ppx, holding Lovenox given Hb
--Dispo pending
Assessment / Plan
-
58 yo female with a h/o sigmoid stricture secondary to chronic endometriosis/adhseions
POD #2 Robotic low anterior resection with cysto for stent placement
AFVSS
Labs notable for continued drift in Hb, acute bloodless anemia combined with dilution, no signs of active bleeding (HR, BP, UOP)
Advance diet. DC Mari. Recheck in hemoglobin this afternoon to confirm stability. Pending progression throughout the day of discharge today versus tomorrow.
--LRD
--Pain control: Tylenol, Oxycodone, holding Toradol given Hb drift
--DC Mari
--HLIV
--Diflucan 100mg daily given issues with yeast infection
--Repeat h&H this afternoon
--DVT: SCDs for VTE ppx, holding Lovenox given Hb
--Dispo pending
Subjective Data
-
Date of Service: July 17, 2024
No complaints. Feels improved. Abdominal pain well-controlled. No nausea or vomiting. Passing flatus and loose, nonbloody stools. No dizziness or lightheadedness. Ambulating. Mari in place.
Objective Data
-
Intake and Output
07/16/24 07/17/24 07/18/24
06:59 06:59 06:59
Intake Total 1730 / 1730 720 / 720
Output Total 1875 / 1875 1050 / 1050
Balance -145 / -145 -330 / -330
Intake:
Oral fluids 480 / 480 720 / 720
IV fluids (Total) 1250 / 1250
normosol 50 / 50
Output:
Urine, Mari 1875 / 1875 1050 / 1050
Vital Signs
Temp Pulse Resp BP Pulse Ox
98.3 F 71 16 114/62 92
07/17/24 07:18 07/17/24 07:18 07/17/24 07:18 07/17/24 07:18 07/17/24 07:18
Lab Results
07/17/24 04:07
Calcium 8.2 mg/dl (8.4-10.2) L 07/17/24 04:07
Total Bilirubin 0.5 mg/dl (0.2-1.3) 07/07/24 09:04
AST 22 U/L (14-36) 07/07/24 09:04
ALT 23 U/L (0-35) 07/07/24 09:04
Alkaline Phosphatase 62 U/L (38-126) 07/07/24 09:04
Total Protein 7.0 g/dl (6.3-8.2) 07/07/24 09:04
Albumin 4.5 g/dl (3.5-5.0) 07/07/24 09:04
Physical Exam
-
Gen: NAD
Abd: soft, minimal tenderness, ND, non-peritoneal, incisions c/d/i - no erythema, ecchymosis or drainage
: Mari with clear urine in tubing
Patient has a mari catheter: Yes
Patient has a central line: No
[2024-07-17 12:30] LABS: Hematocrit 31.3 % (37.0-47.0); Hemoglobin 9.7 g/dL (12.0-16.0)
[2024-07-17 14:15] VITALS: BP 114/69
--- NOTE | 2024-07-17 14:21 | W.DCSUMMARY ---
Discharge Summary
Discharge Data
Date of Admission: 07/15/24
Date of Discharge: 07/17/24
-
Pending Results: No
Hospital Course
Ms Matos presented for surgical management of a sigmoid stricture with robotic low anterior resection and cystoscopy with stent placement preformed. She tolerated the procedure well without complication. Stents were removed in a stepwise fashion
with removal of mari catheter for vodiing trial prior to discharge. She had good bowel recovery post operatively and diet was able to be advanced and well tolerated. Pain was well managed prior to discharge.
Discharge Plan
-
Patient Disposition: Home (Routine Discharge)
Discharge Diagnosis/Procedures: Robotic low anterior resection with cystoscopy and bilateral ureteral stent placement (stents removed)
Condition: Good
Diet: Low Fiber
Activity: No strenuous activity
Additional Activity: Do not lift over 10lbs (gallon of milk)
Driving Restrictions: Wait until comfortable twisting, off narcotics
Bathing Restrictions: OK to Shower
Wound Care: Allow the glue to flake off your incisions over the next 2-3 weeks. Avoid scrubbing or picking off. Do not swim or soak for the next 2 weeks.
Activity Restrictions/Additional Instructions:
Call your surgeon if you have worsening pain, nausea with vomiting or a fever >100.5
Referrals:
Reed Gray MD [Active] - in two to four weeks
Additional Discharge Medication Instructions: Take Tylenol and Naproxen as needed for mild to moderate pain and oxycodone as needed for breakthrough pain
Prescriptions:
New
oxycodone 5 mg tablet
5 mg PO Q4HPRN PRN (Reason: breakthrough/severe pain) Qty: 15 0RF
Continued
omeprazole 40 mg Capsule,Delayed Release(Dr/Ec)
40 mg PO DAILY
levothyroxine 50 mcg Tablet
50 mcg PO DAILY
magnesium 200 mg Tablet
400 mg PO DAILY
Ebony
1 tab PO DAILY PRN (Reason: allergies)
hydroxychloroquine 200 mg Tablet
200 mg PO BID
cholecalciferol (vitamin D3) [Vitamin D3] 25 mcg (1,000 unit) Capsule
25 mcg PO DAILY
Nutrafol
2 cap PO DAILY
Probiotic
1 cap PO DAILY
Pycngenol
100 mg PO DAILY
Vitamin B12
2,500 mcg PO DAILY
Discontinued
Sutab 1.479-0.188- 0.225 gram Tablet
0 tab PO PRE OP
metronidazole 500 mg Tablet
500 mg PO PRE OP
Patient Comments:
took at 1400,1500, and 2200 on 07/14/24
neomycin 500 mg Tablet
1 g PO PRE OP
Patient Comments:
took at 1400,1500, and 2200 on 07/14/24
Discharge Orders:
Discharge Patient (As Directed); Ordered 07/17/24
Ordered By: Nanci Souza
Discharge Date and Time
Print Language: PANAMANIAN
== END 2024-07-17 14:50 | disposition home or self-care (01) | DRG 331 ==
LOC: 2 SOUTH 06:03
PROVIDERS: Registered Nurse; ADMITTING PHYSICIAN Surgery
PROC: 8E0W4CZ Robotic Assisted Procedure of Trunk Region, Percutaneous Endoscopic Approach (ICD-10-PCS; 2024-07-15)
PROC: 0DNU4ZZ Release Omentum, Percutaneous Endoscopic Approach (ICD-10-PCS; 2024-07-15)
PROC: 0DBN4ZZ Excision of Sigmoid Colon, Percutaneous Endoscopic Approach (ICD-10-PCS; 2024-07-15)
PROC: 0DJD8ZZ Inspection of Lower Intestinal Tract, Via Natural or Artificial Opening Endoscopic (ICD-10-PCS; 2024-07-15)
DX: K56.699 Other intestinal obstruction unspecified as to partial versus complete obstruction (principal); N80.30 Endometriosis of pelvic peritoneum, unspecified; K66.0 Peritoneal adhesions (postprocedural) (postinfection)
CPT/HCPCS: 88307; 36415; 80048; 80053; 83036; 85014; 85018; 85025; 85027; 85610; 85730; 86850; 86900; 86901; 93005; A4300; J1335